=== PATIENT | male | born 1945 | race Caucasian/White ===

== ENCOUNTER 2017-07-26 08:08 | Emergency (ER) | payer OTHER ==
[~2017-07-26] VITALS: Ht 170.2 cm; Wt 84.7 kg
[2017-07-26 08:12] VITALS: Ht 170.2 cm; Wt 84.7 kg
--- NOTE | 2017-07-26 09:14 | RADRPT ---
PROCEDURE: XR Chest. CLINICAL INDICATION: Cough TECHNIQUE: AP Portable chest. COMPARISON: No pertinent prior examinations were submitted for comparison. FINDINGS: The cardiomediastinal silhouette is normal.The aortic arch is calcified. No pleural effusion or pneu mothorax is seen. Left basilar, retrocardiac density is visualized. There is probable lingular scarr ing or atelectasis. The osseous structures are intact. IMPRESSION: Left basilar infiltrate or atelectasis. Aortic atherosclerosis. Physician Ana Date Time Electronically viewed and signed by Physician Ana on 07/26/2017 09:14 CS/
--- NOTE | 2017-07-26 09:16 | ERD ---
ER Documentation Chief Complaint Chief Complaint cough with chest congestion x 3 days HPI This is a 72-year-old male presents the emergency department today complaining of cough, chest congestion, itchy eyes and runny nose. States he has not taken any medication for the pain. Denies any fevers or chills. ROS All systems reviewed and are negative except as per history of present illness. Medications Home Meds Active Scripts Guaifenesin-Dextromethorphan* (Robitussin* DM) 100MG/10MG/5ML Syrup, 10 ML PO Q6H Y for COUGH for 5 Days, ML Prov:ROBERT BRO PA-C 07/26/17 Cetirizine Hcl* (Zyrtec*) 10 Mg Capsule, 10 MG PO DAILY, #14 TAB.CHEW Prov:ROBERT BRO PA-C 07/26/17 Azithromycin* (Zithromax*) 250 Mg Tablet, 250 MG PO .ZPACK DIRECTED, #6 TAB TAKE 500 MG (2 TABS) THE FIRST DAY THEN 250 MG (1 TAB) DAYS 2-5 Prov:ROBERT BRO PA-C 07/26/17 Physical Exam Vitals Vital Signs Date Time Temp Pulse Resp B/P Pulse Ox O2 Delivery O2 Flow Rate FiO2 07/26/17 08:12 98.2 86 20 135/73 96 Physical Exam Const: NAD Head: Atraumatic Eyes: Normal Conjunctiva and watery eyes. ENT: TMs normal. Nose mild drainage. Throat no erythema no exudate Neck: Full range of motion..~ No meningismus. Resp: Clear to auscultation bilaterally Cardio: Regular rate and rhythm, no murmurs Abd: Soft, non tender, non distended. Normal bowel sounds Skin: No petechiae or rashes Back: No midline or flank tenderness Ext: No cyanosis, or edema Neur: Awake and alert Psych: Normal Mood and Affect Results 24 hrs DIAGNOSTIC IMAGING REPORT Patient: ROXANA OROZCO : 1945 Age: 72 Sex: M MR #: [id number] DOS: 07/26/17 0000 Ordering MD: ROBERT BRO PA-C Location: [facility] Room/Bed: PROCEDURE: XR Chest. CLINICAL INDICATION: Cough TECHNIQUE: AP Portable chest. COMPARISON: No pertinent prior examinations were submitted for comparison. FINDINGS: The cardiomediastinal silhouette is normal.The aortic arch is calcified. No pleural effusion or pneumothorax is seen. Left basilar, retrocardiac density is visualized. There is probable lingular scarring or atelectasis. The osseous structures are intact. IMPRESSION: Left basilar infiltrate or atelectasis. Aortic atherosclerosis. Physician Ana Date Time Electronically viewed and signed by Marsha Ramos Physician on 07/26/2017 09: 14 CS/ CC: ROBERT BRO PA-C Procedures/MDM This is a 72-year-old male who presents the emergency department today complaining of URI symptoms however given patient's age and complaints of cough for the past 3 days I did obtain a chest x-ray X-ray shows left basilar infiltrate or atelectasis. There is a retrocardiac density visualized. There is no pleural effusion or pneumothorax. Symptoms at this time consistent with with possible early pneumonia. I have explained this to the patient. Discussed the patient with Dr. Lebron and he feels that given the patient's age she would be appropriate to treat with antibiotics. Patient given a prescription for azithromycin as well as Zyrtec and Robitussin for additional symptom [id number]. Patient is afebrile and otherwise well-appearing. Do not feel he requires further workup or imaging at this time. Low suspicion for PE, abscess, pleural effusion or pneumothorax, sepsis or severe acute bacterial infection. At this time the patient is stable for discharge and outpatient management. Patient should follow up with their PCP in the next 1-2 days. They may return to the emergency department sooner for any persistent or worsening of symptoms. Patient understood and agreed with the plan. Departure Diagnosis: Primary Impression: Pneumonia Pneumonia type: due to unspecified organism Laterality: left Lung location : unspecified part of lung Qualified Code: J18.9 - Pneumonia of left lung due to infectious organism, unspecified part of lung Condition: Fair ROBERT BRO PA-C Jul 26, 2017 09:16
[2017-07-26] MEDS ORDERED: AZIT250T94 PO (09:30)
[2017-07-26] MEDS ORDERED: CETI10CA PO (09:31)
[2017-07-26] MEDS ORDERED: UDROBDM PO (09:31)
== END 2017-07-26 09:40 | disposition home or self-care (01) ==
LOC: FTE 08:08
DX: J18.9 Pneumonia, unspecified organism (principal)
CPT/HCPCS: 71010

== ENCOUNTER 2017-07-28 11:04 | Emergency (ER) | payer OTHER ==
[~2017-07-28] VITALS: Ht 175.3 cm; Wt 84.5 kg
[~2017-07-28 11:04] MED LIST: AZIT250T94 PO; CETI10CA PO; UDROBDM PO
[2017-07-28 11:07] VITALS: Ht 175.3 cm; Wt 84.5 kg
[2017-07-28] MEDS ORDERED: BENZ100C70 PO (11:32)
[2017-07-28] MEDS ORDERED: GUAI118L22 PO (11:32)
--- NOTE | 2017-07-28 12:10 | ERD ---
ER Documentation Chief Complaint Chief Complaint ASH ST EAR ITCHING ASH X 3 DAYS HPI 72-year-old male recently diagnosed with left basilar infiltrate versus atelectasis, possible pneumonia comes emergency department for recheck for sore throat, itching ears and itchy throat for 3 days with a cough. The patient was started on a Z-Claudio, also given Robitussin and Zyrtec. In Turkish the patient is asking for something stronger for the cough. At this time he clearly states that he has not had any trouble breathing, hemoptysis, chest pain or shortness breath. ROS All systems reviewed and are negative except as per history of present illness. Medications Home Meds Active Scripts Guaifenesin/Codeine Phosphate (CHERATUSSIN AC SYRUP) 118 Ml Liquid, 5 ML PO Q4H Y for COUGH, #118 ML Prov:TASNEEM LIRA PA-C 07/28/17 Benzonatate* (Tessalon Perle*) 100 Mg Capsule, 100 MG PO Q8H Y for COUGH, #30 CAP Prov:TASNEEM LIRA PA-C 07/28/17 Guaifenesin-Dextromethorphan* (Robitussin* DM) 100MG/10MG/5ML Syrup, 10 ML PO Q6H Y for COUGH for 5 Days, ML Prov:ROBERT BRO PA-C 07/26/17 Cetirizine Hcl* (Zyrtec*) 10 Mg Capsule, 10 MG PO DAILY, #14 TAB.CHEW Prov:ROBERT BRO PA-C 07/26/17 Azithromycin* (Zithromax*) 250 Mg Tablet, 250 MG PO .CarltonPACK DIRECTED, #6 TAB TAKE 500 MG (2 TABS) THE FIRST DAY THEN 250 MG (1 TAB) DAYS 2-5 Prov:ROBERT BRO PA-C 07/26/17 Allergies Allergies: Coded Allergies: No Known Allergy (Unverified , 07/28/17) PMhx/Soc History of Surgery: Yes (bnilaterla knee surgery) Hx Cardiac Disorders: Yes (hypertension) Hx Psychiatric Problems: No Hx Miscellaneous Medical Probl: No Hx Alcohol Use: No Hx Substance Use: No Hx Tobacco Use: No Smoking Status: Never smoker Physical Exam Vitals Vital Signs Date Time Temp Pulse Resp B/P Pulse Ox O2 Delivery O2 Flow Rate FiO2 07/28/17 11:07 98.9 71 18 148/88 99 Physical Exam General: Well-developed, well-nourished. The patient appears in no acute distress. HEENT: Head is normocephalic, atraumatic. No scleral icterus. Pupils are equal , round, and reactive. Oral mucous membranes are moist. No pharyngeal erythema. Neck: Supple. Nontender. Lungs: Clear to auscultation. Normal air movement. Heart: Regular rate and rhythm. S1 and S2 are normal. No murmurs, gallops, or rubs. Abdomen: Soft, nontender, nondistended. Bowel sounds are normoactive. Extremities: No clubbing or cyanosis. Normal pulses. Moving extremities x 4. No weakness. Neurologic: Alert and oriented 3. No focal deficits. Skin: Normal turgor. No rash or lesions. Procedures/MDM 72-year-old male who is well-appearing, nontoxic without any signs of respiratory distress or evidence of hypoxia on examination and comes in with a revisit for recently treated pneumonia. The patient was seen here on 07-26-17 and on chest x-ray there was a finding per radiologist of the left basilar infiltrate versus atelectasis. Given the patient's age and presentation he was treated for pneumonia. He has been taking Robitussin, Zyrtec and a Z-Claudio, and he is asking for medication stronger for his cough. The patient's breath sounds are clear, his vital signs are normal, there is no evidence of hypoxia, respiratory distress, or sepsis. He is taking his medication, and will he will be given medication for cough, including Cheratussin and Tessalon Perles. I believe that the patient this time is stable, may continue his antibiotics and recheck with his PCP on Tuesday. Patient's blood pressure was elevated (>120/80) but appears stable without evidence of hypertension emergency or urgency. The patient was counseled about the risks of hypertension and urged to pursue outpatient monitoring and therapy within a week with their primary care physician. Departure Diagnosis: Primary Impression: Pneumonia Condition: Good Patient Instructions: Pneumonia (Adult) Referrals: LORI MORALES MD (PCP) Additional Instructions: Llame al doctor CHANTE y sylvia piedad TISH PARA DENTRO DE 1-2 STEWART.Dgale a la secretaria que nosotros le instruimos hacer esta tish.Avise o llame si meek condicin se empeora antes de la tish. Regresa aqui si peor o no mejor. TASNEEM LIRA PA-C Jul 28, 2017 12:10
== END 2017-07-28 12:55 | disposition home or self-care (01) ==
LOC: FTE 11:04
DX: J18.9 Pneumonia, unspecified organism (principal); I10 Essential (primary) hypertension
CPT/HCPCS: 99283

== ENCOUNTER 2017-09-07 07:58 | Emergency (ER) | END 2017-09-07 10:47 | disposition home or self-care (01) ==

== ENCOUNTER 2018-07-17 14:27 | Emergency (ER) | END 2018-07-17 15:50 | disposition home or self-care (01) ==

== ENCOUNTER 2018-07-20 07:28 | Emergency (ER) | END 2018-07-20 09:37 | disposition home or self-care (01) ==